=== PATIENT | male | born 1960 | race American Indian/Alaskan Native ===

== ENCOUNTER 2023-04-14 11:05 | Day surgery (SDC) | payer OTHER ==
[~2023-04-14] VITALS: Ht 177.8 cm; Wt 104.5 kg
[~2023-04-14 11:05] MED LIST: ALLOPURINOL100 MG PO; FISH OIL500 MG PO; FLEXERIL5 MG PO; HYDROCHLOROTH12.5 M1 PO; MULTI VITAMIN1 EACH PO; NORCO 10-325 T1 EACH PO; TYLENOL WITH C1 EACH PO; ULTRAM50 MG PO
[2023-04-14 11:23] VITALS: BP 154/86
--- NOTE | 2023-04-14 13:01 | NUR ---
04/14/23 1301 Sheets,Cherie 1251 PT ARRIVED TO PACU ON 2L NC, PT WAKES EASILY AND DENIES CONCERNS. ENCOURAGED TO PASS GAS NEEDED. 1253 PT ASLEEP AND LARGE AMOUNT OF SNORING NOTED.
[2023-04-14 13:28] VITALS: BP 144/82
--- NOTE | 2023-04-14 20:22 | OR ---
[facility] [address] [place], [place] [address] Signed DATE OF OPERATION: 04/14/2023 SURGEON: Tiffanie Gonzalez MD PREOPERATIVE DIAGNOSIS: Colon screening. POSTOPERATIVE DIAGNOSIS: Questionable polyp of cecum (excised) and diminutive polyp of transverse colon (excised). PROCEDURE: Total colonoscopy to cecum with cold morcellation excision x2. ANESTHESIA: Intravenous sedation; fentanyl 100 mcg and Versed 8 mg. INDICATION: This 62-year-old man is a patient of Dr. Bernabe at [facility]. He last underwent colonoscopy in 2012 at which time, he was found to have a normal colon. He currently has no symptoms of bleeding, diarrhea or constipation and no known family history of colon cancer. He has undergone left hip replacement in 2017 and was given Ancef preoperatively to this procedure. He understands the risk of colonoscopy including but not limited to bleeding, infection, and perforation and wished to proceed. FINDINGS: The prep was excellent. Complete colonoscopy was undertaken to the cecum. There was mucosal thickening of the cecum that was suggestive though not diagnostic of a polyp, even with narrow band imaging. It was excised. Another lesion most consistent with a diminutive polyp was noted in the left transverse colon which was excised also. The remaining colon was normal. DESCRIPTION OF PROCEDURE: The patient was brought to the endoscopy suite and placed in the lateral decubitus position, given intravenous sedation to the point of slurred speech and nystagmus. Digital rectal examination was normal. An Olympus video colonoscope was passed in the rectum and manipulated throughout the colon ultimately intubating the cecum. The ileocecal valve and appendiceal orifice appeared normal. There was a mucosal thickening there that despite narrow band imaging could not be certain as a normal mucosal fold with edema versus a polyp and on that Electronically Signed By: TIFFANIE GONZALEZ MD 04/14/232021 PATIENT NAME: SWAPNA MCKEON OPERATIVE REPORT DATE OF : 58 REPORT #: [id number] PHYSICIAN: TIFFANIE GONZALEZ MD PCP: CHER BERNABE MD REPORT IS CONFIDENTIAL AND NOT TO BE RELEASED WITHOUT AUTHORIZATION [facility] [address] [place], [place] [address] Signed basis, it was excised with cold morcellation technique. The scope was withdrawn from that point and examination throughout showed no sign of abnormality until the left transverse colon where a diminutive polyp appeared. This was excised with cold morcellation technique. Further withdrawal showed no other abnormality. Retroflexed view of the rectum was normal. Scope was removed and the patient was taken to the recovery room in good condition. CONCLUDING DIAGNOSIS: Most likely two small polyps, both excised. PLAN: Recommend repeat colonoscopy in 10 years unless the pathology on the report confirms adenomatous change in which case a repeat in 5 years would be appropriate. He will return to the ongoing care of Dr. Bernabe. MD MCKINLEY Kee/LENNY /[id number] cc: Cher Bernabe MD Copies: CHER BERNABE MD ~ Electronically Signed By: TIFFANIE GONZALEZ MD 04/14/232021 PATIENT NAME: SWAPNA MCKEON OPERATIVE REPORT DATE OF : 58 REPORT #: [id number] PHYSICIAN: TIFFANIE GONZALEZ MD PCP: CHER BERNABE MD REPORT IS CONFIDENTIAL AND NOT TO BE RELEASED WITHOUT AUTHORIZATION
--- NOTE | 2023-04-20 14:15 | PATH ---
[facility] [address] [place], [place] [address] Signed SPECIMEN(S): A CECUM COLON BIOPSY SPECIMEN(S): B TRANSVERSE COLON POLYP SPECIMEN SOURCE: A. CECUM COLON BIOPSY B. TRANSVERSE COLON POLYP CLINICAL HISTORY: Screening colonoscopy. Polyps. FINAL PATHOLOGIC DIAGNOSIS: A. Cecum, biopsy: - Sessile serrated polyp (multiple fragments). B. Transverse colon, polypectomy: - Submucosal leiomyoma. DS:clv MICROSCOPIC EXAMINATION: Histologic sections of all submitted blocks are examined by light microscopy. These findings, together with the gross examination, support the pathologic diagnosis. GROSS DESCRIPTION: A. The specimen, labeled and designated "[place], cecum colon biopsy," is received in formalin and consists of seven pastor soft tissue fragments, ranging from 0.1 to 0.3 cm. Entirely submitted in (A1). B. The specimen, labeled and designated "[place], transverse colon polyp," is received in formalin and consists of one pastor soft tissue fragment, 0.2 cm. Entirely submitted in (B1). VB (under the direct supervision of a pathologist) The Gross Description was prepared using a voice recognition system. The report was reviewed for accuracy; however, sound-alike word errors, addition and/or deletions may occur. If there is any question about this report, please contact Client Services. PERFORMING LABORATORY: Technical component was performed by [email or web address], [address] [place] [id number] (CLIA# [id number]). Professional interpretation was performed by [facility], [address] [place] [id number] (CLIA#: [id number]). PATIENT NAME: SWAPNA MCKEON PATHOLOGY DATE OF : 58 REPORT #: [id number] PHYSICIAN: [facility] PCP: CHER DUKE MD REPORT IS CONFIDENTIAL AND NOT TO BE RELEASED WITHOUT AUTHORIZATION [facility] [address] [place] [id number] Signed Diagnostician: Douglas Bell MD Pathologist Electronically Signed 04/20/2023 Copies: ~ PATIENT NAME: SWAPNA MCKEON PATHOLOGY DATE OF : 58 REPORT #: [id number] PHYSICIAN: [facility] PCP: CHER DUKE MD REPORT IS CONFIDENTIAL AND NOT TO BE RELEASED WITHOUT AUTHORIZATION
== END 2023-04-14 13:42 | disposition home or self-care (01) ==
LOC: OPS 11:05 → DS 11:06 → OPS 12:15 → DS 13:00 → OPS 13:00
PROVIDERS: ATTEND Surgery
PROC: 0DBL8ZZ Excision of Transverse Colon, Via Natural or Artificial Opening Endoscopic (ICD-10-PCS; 2023-04-14)
PROC: 0DBH8ZZ Excision of Cecum, Via Natural or Artificial Opening Endoscopic (ICD-10-PCS; principal; 2023-04-14 12:15)
DX: Z12.11 Encounter for screening for malignant neoplasm of colon (principal); Z96.641 Presence of right artificial hip joint; M10.9 Gout, unspecified; I10 Essential (primary) hypertension; K63.5 Polyp of colon; D12.3 Benign neoplasm of transverse colon
CPT/HCPCS: 99153; G0500; J0690; J2250; J3010; J7121